=== PATIENT | female | born 1995 | race Caucasian/White ===

== ENCOUNTER 2022-09-19 15:09 | Emergency (ER) | payer OTHER ==
[~2022-09-19] VITALS: Ht 160 cm; Wt 58.5 kg
== END 2022-09-19 18:36 | disposition home or self-care (01) ==
LOC: ER 15:09
DX: N93.9 Abnormal uterine and vaginal bleeding, unspecified (principal)

== ENCOUNTER 2024-07-12 11:49 | Outpatient (CLI) | payer OTHER ==
[~2024-07-12 11:49] MED LIST: PRENATAL + DHA1 EAC1 PO
== END 2024-07-12 12:42 | disposition home or self-care (01) ==
LOC: NST 11:49
PROVIDERS: ATTEND Obstetrics & Gynecology Maternal & Fetal Medicine
DX: Z34.83 Encounter for supervision of other normal pregnancy, third trimester (principal)

== ENCOUNTER 2024-07-19 12:17 | Inpatient (IN) | payer OTHER ==
[~2024-07-19] VITALS: Ht 157.5 cm; Wt 0.5 kg
[2024-07-24 10:20] VITALS: BP 127/79
[2024-07-24] MEDS ORDERED: OXYTOCIN 500 ML IV SCH (10:45)
[2024-07-24] MEDS ORDERED: RINGERS SOLUTION,LACTATED 1,000 ML IV SCH ×2 (10:45→15:00)
[2024-07-24 11:02] LABS: HEMATOCRIT 32.5 % (36.0-45.00); HEMOGLOBIN 10.6 g/dL (12.0-15.00); MEAN CELL VOLUME 90.6 fL (80.00-100.00); MEAN CORPUSCULAR HEMOGLOBIN 29.6 pg (27.00-32.0); MEAN CORPUSCULAR HGB CONC 32.7 g/dl (32.0-36.0); PLATELET COUNT 208 K/uL (150-450); RED BLOOD COUNT 3.59 M/uL (4.00-6.00); RED CELL DISTRIBUTION WIDTH 13.8 % (11.5-14.5)
[2024-07-24 11:10] LABS: INR 0.97; PARTIAL THROMBOPLASTIN TIME 30.5 SECONDS (22.0-34.0); PROTHROMBIN TIME 10.6 SECONDS (9.0-11.5)
[2024-07-24 12:12] LABS: ALBUMIN 2.6 gm/dL (3.4-5.0); BILIRUBIN TOTAL 0.32 mg/dL (0.3-1.2); CALCIUM 9.5 mg/dL (8.5-10.1); CREATININE SERUM 0.5 mg/dL (0.55-1.02); GFR 149.14; POTASSIUM 4.38 mEq/L (3.5-5.1); TOTAL PROTEIN 6.6 gm/dL (6.4-8.2)
[2024-07-24] MEDS ORDERED: OXYTOCIN 10 UNITS/ML VIAL IV ONE (14:00)
[2024-07-24] MEDS ORDERED: ERYTHROMYCIN BASE OPHT 1GM EACH TUBE OP ONE (14:00)
[2024-07-24] MEDS ORDERED: KETOROLAC TROMETHAMINE 30 MG VIAL IV SCH (14:58)
[2024-07-24] MEDS ORDERED: ONDANSETRON HCL 2 MG/ML VIAL IV SCH (14:58)
[2024-07-24] MEDS ORDERED: MORPHINE SULFATE 4 MG/ML CARTRIDGE IV PRN (15:00)
[2024-07-24] MEDS ORDERED: OXYTOCIN 1,000 ML IV ONE (15:00)
[2024-07-24] MEDS ORDERED: GABAPENTIN 300 MG CAPSULE PO SCH (17:00)
[2024-07-24] MEDS ORDERED: SIMETHICONE 125 MG CAPSULE PO SCH (17:00)
[2024-07-24] MEDS ORDERED: ACETAMINOPHEN 500 MG GEL..CAP PO SCH (18:00)
[2024-07-24 18:01] VITALS: BP 138/75
[2024-07-25] VITALS: BP 113/71
[2024-07-25] MEDS ORDERED: OxyCODONE HCL 5 MG TABLET (ROXICODONE) PO PRN (08:00)
[2024-07-25] MEDS ORDERED: KETOROLAC TROMETHAMINE 10 MG TABLET PO SCH (08:00)
[2024-07-25 08:22] VITALS: BP 139/81
[2024-07-25] MEDS ORDERED: DOCUSATE SODIUM 100MG CAP PO SCH (09:00)
[2024-07-25 09:41] LABS: HEMOGLOBIN 9.9 g/dL (12.0-15.00); MEAN CELL VOLUME 90.3 fL (80.00-100.00); MEAN CORPUSCULAR HEMOGLOBIN 29.7 pg (27.00-32.0); MEAN CORPUSCULAR HGB CONC 32.9 g/dl (32.0-36.0); PLATELET COUNT 190 K/uL (150-450); RED BLOOD COUNT 3.33 M/uL (4.00-6.00); RED CELL DISTRIBUTION WIDTH 13.4 % (11.5-14.5)
[2024-07-25 16:53] VITALS: BP 128/83
[2024-07-26 00:56] VITALS: BP 130/79
[2024-07-26 08:00] VITALS: BP 115/78
[2024-07-26] MEDS ORDERED: KETO10TA2 PO (10:01)
[2024-07-26] MEDS ORDERED: PERCOCET 5-3251 EACH PO (10:02)
[2024-07-26] MEDS ORDERED: NASAL MIST126 ML NASAL (10:02)
== END 2024-07-26 13:18 | disposition home or self-care (01) | DRG 788 ==
LOC: LDR 07-24 10:08 → OB/GYN 07-24 10:08 → O/R 07-24 14:29 → OB/GYN 07-24 15:47
PROVIDERS: Obstetrics & Gynecology; ADMIT Obstetrics & Gynecology; ATTEND Obstetrics & Gynecology
PROC: 4A1HXCZ Monitoring of Products of Conception, Cardiac Rate, External Approach (ICD-10-PCS; 2024-07-24)
PROC: 10D00Z1 Extraction of Products of Conception, Low, Open Approach (ICD-10-PCS; principal; 2024-07-24 14:45)
DX: O82 Encounter for cesarean delivery without indication (principal); O62.0 Primary inadequate contractions; Z3A.39 39 weeks gestation of pregnancy; Z37.0 Single live birth; Z20.822 Contact with and (suspected) exposure to COVID-19